=== PATIENT | male | born 1965 | race Caucasian/White ===

== ENCOUNTER 2022-02-01 10:49 | Outpatient (CLI) | payer OTHER ==
--- NOTE | 2022-02-01 17:28 | XRAY Report ---
PROCEDURE: Foot 3 View LT INDICATIONS: L FOOT PX TECHNIQUE: 3 views of the foot were acquired. COMPARISON: None FINDINGS: Bones: No fractures or dislocations. No suspicious bony lesions. Soft tissues: No tibiotalar joint effusion. Achilles tendon appears normal. IMPRESSION: No radiographic abnormalities. Reviewed by: Susan Singh MD on 02/01/2022 5:26 PM PDT Approved by: Susan Singh MD on 02/01/2022 5:26 PM PDT Station ID: [id number]
== END 2022-02-01 10:50 | disposition home or self-care (01) ==
LOC: DI.N 10:49
PROVIDERS: ATTEND Physician Assistant
DX: M79.675 Pain in left toe(s) (principal)